=== PATIENT | male | born 1935 | race Caucasian/White ===

== ENCOUNTER 2016-10-29 16:10 | Inpatient (IN) | payer BC ==
--- NOTE | ~2016-10-29 | CN ---
Consultation Report [facility] [address] [place]. [address] NAME: ANNAMARIA TORREZ : 37 STATUS : ADM IN PAT#: [id number] AGE: 81 ADM/REG DATE : 10/29/16 MR#: [id number] REPORT SERV DATE: 10/30/16 DICTATED BY: DATE: REPORT STATUS : Draft TRANSCRIBED BY: MODL DATE: 10/30/16 CONSULTATION DATE OF CONSULTATION: 10/30/2016 REASON FOR CONSULTATION: Abdominal pain and medical management. HISTORY OF PRESENT ILLNESS: The patient was admitted under the care of Dr. Meek for [id number]-[id number] heart failure. The patient is starting Entresto therapy as well as being diuresed with Bumex. The patient is complaining of burning epigastric pain and belching that has been present the last several days. He has a history of gastroesophageal reflux disease. He has taken ranitidine in the past; however, he has not taken it in several years. He reports symptoms worsened after he took some medications on an empty stomach. Although he has a plethora of other comorbid conditions. He is not complaining of any other problems at this time. PAST MEDICAL HISTORY: Includes migraines, cataracts, glaucoma, myopia, presbyopia, COPD, obstructive sleep apnea with CPAP therapy, gout, spinal stenosis, gastroesophageal reflux disease, diverticulosis, BPH, ophthalmic shingle. PAST SURGICAL HISTORY: Includes a right cataract removal, mastoidectomy, tonsillectomy, CABG, right ankle surgery, AICD placement, and multiple cardiac stent. SOCIAL HISTORY: The patient denies tobacco, alcohol, or illicit drug use. He is retired and is . He lives at home with his . FAMILY HISTORY: His father had miliary TB. Mother with CVA and AR. Brother had an AR and stroke. Another brother had COPD. His sister had a heart valve replacement unsure which valve. CURRENT MEDICATIONS: Vitamin C 500 mg p.o. t.i.d., aspirin 81 mg p.o. daily, artificial tears, brimonidine ophthalmic t.i.d., Bumex 1 mg IV q.6 hours, cholecalciferol 2000 units p.o. daily, Lovenox 40 mg subcu daily, loteprednol ophthalmic b.i.d., Bystolic 5 mg p.o. daily, Entresto 24/26 mg one tablet p.o. b.i.d., simethicone 120 mg p.o. t.i.d., tocopherol 400 units p.o. b.i.d. ALLERGIES: REFER TO THE LIST. PHYSICAL EXAMINATION: GENERAL: The patient is a pleasant 81-year-old male, in no acute distress. CV: 2/6 systolic murmur. Regular rate and rhythm noted. The patient is paced on the monitor. LUNGS: Clear throughout lung wilcox. NECK: No JVD or bruits noted. Consultation Report [facility] [address] [place]. [address] NAME: ANNAMARIA TORREZ : 37 STATUS : ADM IN [facility]#: [id number] AGE: 81 ADM/REG DATE : 10/29/16 MR#: [id number] REPORT SERV DATE: 10/30/16 DICTATED BY: DATE: REPORT STATUS : Draft TRANSCRIBED BY: MODL DATE: 10/30/16 NEURO: Cranial nerves 2 through 12 grossly intact. The patient is alert and oriented x4. He follows commands. ABDOMEN: Soft, obese. Bowel sounds are present. The patient does have tenderness in the epigastric area to palpation. EXTREMITIES: Peripheral pulses present. Trace edema noted in lower extremities. VITAL SIGNS: Blood pressure 143/69, pulse 72, respiratory rate is 18, O2 saturation 96% on room air. LABORATORY DATA: Sodium 131, potassium 3.7, chloride 94, BUN 23, creatinine 0.92, GFR 91, glucose 111, calcium 8.8, magnesium 1.8. White blood cell count 9.9, hemoglobin 14, hematocrit 40.3, platelets 189. Troponin 0.03. BNP 1379.9. ASSESSMENT: 1. Epigastric pain/gastroesophageal reflux disease. 2. Heart failure exacerbation. 3. AICD. 4. Obstructive sleep apnea with CPAP therapy. 5. Chronic obstructive pulmonary disease. 6. Glaucoma. 7. History of ophthalmic shingles. PLAN: I gave the patient one time dose of Protonix 40 mg IV today and start ranitidine in the morning. The patient reports that he took ranitidine in the past and was successful in alleviating his GERD symptoms. Dr. Meek is managing the patient's heart failure. All of his other medical conditions are stable. We will follow along and help with the medical management of this patient. CLR/MODL Jose Maria Murrell NP / [id number] CC: Citlaly Willett MD
--- NOTE | ~2016-10-29 | DS ---
Discharge Summary [facility] [address] [place]. [address] NAME: ANNAMARIA TORREZ : 37 STATUS : DIS IN PAT#: [id number] AGE: 81 ADM/REG DATE : 10/29/16 MR#: [id number] REPORT SERV DATE: 11/10/16 DICTATED BY: MICH MEEK DATE: 11/09/16 REPORT STATUS : Draft TRANSCRIBED BY: MODMikael DATE: 11/09/16 Data Collection from hospitalization DISCHARGE DIAGNOSES: 1. Acute/chronic left ventricular systolic failure-compensated. 2. Ischemic cardiomyopathy with severely decreased left ventricular ejection fraction. 3. Coronary artery disease. 4. Hypertension. 5. Dyslipidemia. 6. Mitral regurgitation. 7. Obstructive sleep apnea. 8. Ophthalmic herpes. CONSULTATION: Jose Maria Murrell NP. PROCEDURES PERFORMED: None. DISCHARGE MEDICATIONS: ProAir two puffs via inhaler daily as needed, LubriFresh one application at bedtime, artificial tears one drop every four hours as needed, vitamin C 500 mg three times a day, aspirin 81 mg daily, brimonidine one drop three times a day, Bumex as instructed, Hygroton 25 mg daily, vitamin D3 2000 units daily, Fenesin IR 400 mg twice a day as needed, Lotemax one drop twice a day, Bystolic 5 mg daily, Zoloft 25 mg at bedtime as needed, simethicone 125 mg three times a day, vitamin E 400 mg twice a day, and Entresto 24/26 mg tablet twice a day as instructed. CONDITION AT DISCHARGE: Stable. DISPOSITION: The patient was discharged home on a low-sodium diet with activities as instructed. He would follow up with me, 11/08/2016. HOSPITAL COURSE: This is an 81-year-old man, who has a history of coronary artery disease. He had undergone coronary artery bypass and multiple catheterizations and coronary interventions. The patient had reported worsening dyspnea over the past several days prior to admission. He saw his primary care physician, who gave him Bumex. This did produce modest diuresis, but not significant improvement in his shortness of breath. He went back to his primary doctor, who recommended an emergency room visit. The patient was evaluated at the [facility] emergency room and assessed to have left ventricular systolic failure. He was admitted to the hospital at this time for further evaluation and treatment. Upon admission, he was started on diuretics with IV Bumex. Entresto was going to be restarted. The patient has ischemic cardiomyopathy with severely decreased left ventricular ejection fraction. He has an implantable cardioverted defibrillator. He does have mild mitral regurgitation. The following day, he was seen by Jose Maria Murrell regarding abdominal pain and medical management. The patient has a history of gastroesophageal reflux disease. He had taken ranitidine in the past, however, had not taken it in several years. He said that his symptoms had worsened after he took some medication on an empty stomach. The patient was given a dose of IV Protonix. Ranitidine would be started the following morning. His other medical conditions were stable at this time. On the , telemetry Discharge Summary [address] [address] NAME: ANNAMARIA TORREZ : 37 STATUS : DIS IN PAT#: [id number] AGE: 81 ADM/REG DATE : 10/29/16 MR#: [id number] REPORT SERV DATE: 11/10/16 DICTATED BY: MICH MEEK DATE: 11/09/16 REPORT STATUS : Draft TRANSCRIBED BY: TREY DATE: 11/09/16 revealed AV paced rhythm. He did have some transient hypotension. He had no shortness of breath. Bumex was adjusted. He had no complaints of angina. Discharge planning was performed. His gastroesophageal reflux disease symptoms had improved with Zantac. He had some transient hypotension. Discharge planning was performed. On 11/01/2016, he felt well and wanted to go home. He was ambulating in the steward. Discharge instructions were given. Due to his improved and stable condition, he was discharged home with the above-stated instructions. Information collected by: Lauryn Mcintosh I submit the above information as my discharge summary. FAY/TREY Mich Meek M.D. / [id number] CC: Citlaly Willett CHRISTOPHER M, DO
--- NOTE | ~2016-10-29 | HP ---
History And Physical [facility] [address] [place]. [address] NAME: ANNAMARIA TORREZ : 37 STATUS : ADM IN PAT#: [id number] AGE: 81 ADM/REG DATE : 10/29/16 MR#: [id number] REPORT SERV DATE: 10/30/16 DICTATED BY: ROD MEEK DATE: 10/30/16 REPORT STATUS : Draft TRANSCRIBED BY: MODL DATE: 10/30/16 DATE OF ADMISSION: 10/29/2016 CHIEF COMPLAINT: Worsening shortness of breath. HISTORY OF PRESENT ILLNESS: 81-year-old man, followed by Dr. Cutler, known to me from long history of prior care, has history of coronary artery disease with 03/1996 CABG (Dr. Tadeo) consisting of MAYA to LAD, SVG to diagonal, SVG to RCA, multiple catheterizations and coronary interventions since then with 01/2015 PCI consisting of proximal AV groove circumflex stenosis treated with rotational ablation, and then 2.5 x 15 Xience x2 and 2.5 x12 Xience x1, ischemic cardiomyopathy with 04/2016 echo. Estimating LVEF of 25% with grade 2 diastolic dysfunction and biventricular ICD, followed in [facility] ([facility]), hypertension, dyslipidemia, sleep apnea, and moderate mitral regurgitation. The patient reports worsening dyspnea over the last several days. He sought evaluation with his primary doctor who gave him Bumex. This did produce modest diuresis but not significant improvement in shortness of breath. He went back to his primary doctor who recommended emergency room visit. The patient was evaluated in the [facility] Emergency Room and assessed to have LV systolic failure and has been admitted. He has received IV diuretic since admission and feels better. PAST MEDICAL HISTORY: 1. CAD-surgical and percutaneous revascularization as above. 2. Ischemic cardiomyopathy-LVEF 25%. 3. Chronic LV systolic failure. 4. Hypertension. 5. Dyslipidemia. 6. Sleep apnea-wears CPAP. 7. Moderate mitral regurgitation by echo 04/2016. 8. Ophthalmic herpes. HOME MEDICATIONS: Entresto half tablet twice a day, vitamin D3 1000 unit two tablets daily, Lotemax 0.5% suspension one drop right eye b.i.d., Refresh Plus 0.5% solution to affected eye p.r.n., vitamin C 500 mg three times a day, lutein 6 mg with meals daily, brimonidine tartrate 0.2% solution to affected eye t.i.d., saline nasal spray, lubricant eyedrops, BiPAP at bedtime, aspirin 81 mg daily, LubriFresh p.r.n., vitamin E 400 international units daily, Bystolic 10 mg daily, Pepto-Bismol tablets daily, guaifenesin. ALLERGIES: MEVACOR, BETAXOLOL, DOBUTAMINE, ALL STATINS, LISINOPRIL, ALL STEROIDS, FINASTERIDE, CLONIDINE, DOXYCYCLINE, ACYCLOVIR, CYPROHEPTADINE, AMITRIPTYLINE, LORATADINE, LIVALO, MIRTAZAPINE, NIASPAN, TERAZOSIN, VIGAMOX, CHLORTHALIDONE, CHLORPHENIRAMINE, LOSARTAN, ISOSORBIDE MONONITRATE, DESIPRAMINE, HYDROXYZINE, LATANOPROST, TRAZODONE, SERTRALINE, AND BYSTOLIC. SOCIAL HISTORY: The patient is . He does not smoke. History And Physical [address] [address] NAME: ANNAMARIA TORREZ : 37 STATUS : ADM IN [facility]#: [id number] AGE: 81 ADM/REG DATE : 10/29/16 MR#: [id number] REPORT SERV DATE: 10/30/16 DICTATED BY: ROD MEEK DATE: 10/30/16 REPORT STATUS : Draft TRANSCRIBED BY: TREY DATE: 10/30/16 FAMILY HISTORY: Noncontributory. REVIEW OF SYSTEMS: Chronic irritation right eye from ophthalmic herpes. PHYSICAL EXAMINATION: GENERAL: No acute distress. VITAL SIGNS: Blood pressure 169/91, respirations 20, temperature 96.6, pulse 60 and regular. NECK: No JVD. LUNGS: Clear. CARDIAC: II/ systolic murmur, soft S3. ABDOMEN: Obese. EXTREMITIES: +1/4 bilateral pretibial pitting edema. LABORATORY DATA: BUN and creatinine 23 and 0.92, potassium 3.7, troponin I 0.03, BNP 1379. IMAGING: EKG, AV paced at a rate of 70. ASSESSMENT AND PLAN: 1. Mklgr-do-ohyumcy LV systolic failure-unclear precipitant. NYHA class 3 symptoms. IV diuresis with Bumex has been ordered. We will restart Entresto . 2. Ischemic cardiomyopathy-severely decreased LVEF. This patient has implantable cardioverted defibrillator. 3. Coronary artery disease-no angina. 4. Hypertension-suboptimal values noted now. Starting Entresto as above. 5. Dyslipidemia-not tolerant of statins. May re-evaluate lipid panel with consideration of PCSK9 drug. 6. Mitral regurgitation-mild. /MODL Rod Meek M.D. / [id number] CC: Citlaly Willett CHRISTOPHER M, DO
[~2016-10-29 16:10] MED LIST: ASAB PO; BRILINTA90 MG PO; BRIMONIDINE0.2 % OPH; BYSTOLIC5 MG PO; HYGROTON 25 MG25 MG PO; LOTEMAX OPH SUSP5 ML OPH; LUTEIN PO; MUCUS RELIEF PO; NORV10 PO; PINK BISMUTH PO; VITAMIN D31000 UNIT PO; VITC500 PO; VITE PO; [UNRECOGNIZED DRUG - OTHER] OPH; [UNRECOGNIZED DRUG - OTHER] PO
[2016-10-29 16:33] LABS: BASOPHILS 0.3 %; BASOPHILS ABSOLUTE 0.03 10/3/uL (0.0-0.16); EOSINOPHILS 0.1 %; EOSINOPHILS ABSOLUTE 0.01 10/3/uL (0.0-0.53); HEMATOCRIT 42.6 % (40.0-51.0); HEMOGLOBIN 14.5 g/dL (13.6-17.8); IMMATURE GRANULOCYTES 0.2 %; IMMATURE GRANULOCYTES ABSOLUTE 0.02 10/3/uL (0.0-0.11); LYMPHOCYTES 11.5 %; LYMPHOCYTES ABSOLUTE 1.24 10/3/uL (0.67-4.30); MEAN CORPUSCULAR HEMOGLOB 28.5 pg (26.0-34.0); MEAN CORPUSCULAR VOLUME 83.9 fL (80-100); MEAN PLATELET VOLUME 9.5 fL (9.2-13.0); MONOCYTES 5.9 %; MONOCYTES ABSOLUTE 0.63 10/3/uL (0.21-1.20); NEUTROPHILS ABSOLUTE 8.81 10/3/uL (2.02-8.40); PLATELET COUNT 197 10/3/uL (150-400); RBC DISTRIBUTION WIDTH 13.6 % (12.0-16.0); RED CELL COUNT 5.08 10/6/uL (4.7-6.1); WHITE BLOOD CELLS 10.7 10/3/uL (4.5-10.5)
[2016-10-29 16:37] LABS: MANUAL DIFF NO %
[2016-10-29 16:40] LABS: INTERNATIONAL NORMAL RATI 1.3 UNITS (-); PARTIAL THROMBO TIME 31.3 SEC (22.5-37.2); PROTIME (NOT ORD) 16.2 SEC (12.0-14.5)
[2016-10-29 16:50] LABS: CALCIUM, SERUM 9.1 MG/DL (8.5-10.4); CHEST PAIN PROFILE TAT 0 Hrs 21 Mins; CHLORIDE, SERUM 94 MMOL/L (96-112); CO2 (CARBON DIOXIDE) 25 MMOL/L (24-34); GFR AFRICAN AMERICAN 73 ML/MIN (>=60); GFR NON AFRICAN AMERICAN 63 ML/MIN (>=60); GLUCOSE, SERUM 145 MG/DL (60-99); POTASSIUM, SERUM 4.3 MMOL/L (3.5-5.3); SODIUM, SERUM 131 MMOL/L (135-148); TROPONIN I 0.03 NG/ML (<0.05)
[2016-10-29 16:51] LABS: BUN (BLOOD UREA NITROGEN) 25 MG/DL (6-23)
[2016-10-29] MEDS ORDERED: VITC500 PO (22:39)
[2016-10-29] MEDS ORDERED: BYSTOLIC5 MG PO (22:39)
[2016-10-29] MEDS ORDERED: MYTAB GAS125 MG PO (22:40)
[2016-10-29] MEDS ORDERED: HYGROTON 25 MG25 MG PO (22:40)
[2016-10-29] MEDS ORDERED: VITAMIN D31000 UNIT PO (22:40)
[2016-10-29] MEDS ORDERED: LUBRIFRESH OPH (22:40)
[2016-10-29] MEDS ORDERED: ASAB PO (22:41)
[2016-10-29] MEDS ORDERED: ZOLOFT25 MG PO (22:41)
[2016-10-29] MEDS ORDERED: FENESIN IR400 MG PO (22:41)
[2016-10-29] MEDS ORDERED: VITE PO (22:41)
[2016-10-29] MEDS ORDERED: TEARS PURE OPH (22:42)
[2016-10-29] MEDS ORDERED: BRIMONIDINE0.2 % OPH (22:42)
[2016-10-29] MEDS ORDERED: PROAIR HFA INH (22:42)
[2016-10-29] MEDS ORDERED: LOTEMAX OPH SUSP5 ML OPH (22:43)
[2016-10-30 06:08] LABS: BASOPHILS 0.4 %; BASOPHILS ABSOLUTE 0.04 10/3/uL (0.0-0.16); EOSINOPHILS 1.1 %; EOSINOPHILS ABSOLUTE 0.11 10/3/uL (0.0-0.53); HEMATOCRIT 40.3 % (40.0-51.0); IMMATURE GRANULOCYTES 0.3 %; IMMATURE GRANULOCYTES ABSOLUTE 0.03 10/3/uL (0.0-0.11); LYMPHOCYTES 22.3 %; MEAN CORPUS HGB CONC 34.7 g/dL (32.0-36.0); MEAN CORPUSCULAR HEMOGLOB 29.2 pg (26.0-34.0); MEAN PLATELET VOLUME 9.4 fL (9.2-13.0); MONOCYTES 9.8 %; MONOCYTES ABSOLUTE 0.97 10/3/uL (0.21-1.20); NEUTROPHILS 66.1 %; NEUTROPHILS ABSOLUTE 6.52 10/3/uL (2.02-8.40); PLATELET COUNT 189 10/3/uL (150-400); RBC DISTRIBUTION WIDTH 13.4 % (12.0-16.0); WHITE BLOOD CELLS 9.9 10/3/uL (4.5-10.5)
[2016-10-30 06:11] LABS: MANUAL DIFF NO %
[2016-10-30 06:23] LABS: A/G RATIO 1.1 (0.7-1.9); ALBUMIN 3.3 G/DL (3.5-5.0); ALKALINE PHOSPHATASE 45 U/L (45-117); BUN (BLOOD UREA NITROGEN) 23 MG/DL (6-23); CALCIUM, SERUM 8.8 MG/DL (8.5-10.4); CHLORIDE, SERUM 94 MMOL/L (96-112); CO2 (CARBON DIOXIDE) 27 MMOL/L (24-34); CREATININE 0.92 MG/DL (0.70-1.30); GFR AFRICAN AMERICAN 91 ML/MIN (>=60); GFR NON AFRICAN AMERICAN 78 ML/MIN (>=60); GLOBULIN 2.9 G/DL (2.5-4.1); GLUCOSE, SERUM 111 MG/DL (60-99); POTASSIUM, SERUM 3.7 MMOL/L (3.5-5.3); SGOT(AST) 12 U/L (5-40); SGPT(ALT) 15 U/L (5-65); SODIUM, SERUM 131 MMOL/L (135-148); TOTAL BILIRUBIN 1.1 MG/DL (0-1.2); TOTAL PROTEIN 6.2 G/DL (6.0-8.5)
[2016-10-31 07:10] LABS: BUN (BLOOD UREA NITROGEN) 24 MG/DL (6-23); CALCIUM, SERUM 8.8 MG/DL (8.5-10.4); CHLORIDE, SERUM 90 MMOL/L (96-112); CO2 (CARBON DIOXIDE) 30 MMOL/L (24-34); CREATININE 1.04 MG/DL (0.70-1.30); GFR AFRICAN AMERICAN 78 ML/MIN (>=60); GFR NON AFRICAN AMERICAN 67 ML/MIN (>=60); GLUCOSE, SERUM 121 MG/DL (60-99); POTASSIUM, SERUM 3.2 MMOL/L (3.5-5.3); SODIUM, SERUM 132 MMOL/L (135-148)
[2016-11-01 04:56] LABS: BUN (BLOOD UREA NITROGEN) 25 MG/DL (6-23); CALCIUM, SERUM 9.2 MG/DL (8.5-10.4); CHLORIDE, SERUM 94 MMOL/L (96-112); CHOL/HDL RATIO(NOT ORDER) 6.1 (0-5); CHOLESTEROL 243 MG/DL (< 200); CO2 (CARBON DIOXIDE) 29 MMOL/L (24-34); CREATININE 1.09 MG/DL (0.70-1.30); GFR AFRICAN AMERICAN 74 ML/MIN (>=60); GFR NON AFRICAN AMERICAN 64 ML/MIN (>=60); GLUCOSE, SERUM 122 MG/DL (60-99); HDL CHOLESTEROL 40 MG/DL (> 39); LDL CHOLESTEROL 185 MG/DL (< 130); NON-HDL CHOLESTEROL 203 MG/DL (< 160); POTASSIUM, SERUM 3.6 MMOL/L (3.5-5.3); SODIUM, SERUM 132 MMOL/L (135-148); TRIGLYCERIDE 92 MG/DL (< 150)
[2016-11-01] MEDS ORDERED: BUM1 (12:01)
== END 2016-11-01 13:28 | disposition home or self-care (01) | DRG 292 ==
LOC: ER 16:10 → 7NO 22:36
PROVIDERS: Emergency Medicine; Internal Medicine Cardiovascular Disease
DX: I50.23 Acute on chronic systolic (congestive) heart failure (principal); B02.30 Zoster ocular disease, unspecified; J44.9 Chronic obstructive pulmonary disease, unspecified; I34.0 Nonrheumatic mitral (valve) insufficiency; K21.9 Gastro-esophageal reflux disease without esophagitis; I25.5 Ischemic cardiomyopathy; I25.10 Atherosclerotic heart disease of native coronary artery without angina pectoris; G43.909 Migraine, unspecified, not intractable, without status migrainosus; H40.9 Unspecified glaucoma; N40.0 Benign prostatic hyperplasia without lower urinary tract symptoms; G47.33 Obstructive sleep apnea (adult) (pediatric); M48.00 Spinal stenosis, site unspecified; Z95.810 Presence of automatic (implantable) cardiac defibrillator; Z82.3 Family history of stroke; Z95.1 Presence of aortocoronary bypass graft; Z95.5 Presence of coronary angioplasty implant and graft
CPT/HCPCS: 71020; 80048; 80053; 80061; 83735; 83880; 84484; 85025; 85610; 85730; 99291; A9270-GY; C9113; G0378